=== PATIENT | female | born 2000 | race Caucasian/White ===

== ENCOUNTER 2024-01-27 02:03 | Emergency (ER) | payer MEDICAID ==
[~2024-01-27] VITALS: Ht 165.1 cm; Wt 86.7 kg
[2024-01-27 02:25] LABS: BASOPHILS % (AUTO) 0.6 % (0-1); EOSINOPHILS # (AUTO) 0.1 X10'3 (0-0.9); HEMATOCRIT 38.4 % (35.0-45.0); HEMOGLOBIN 12.9 g/dl (12.0-16.0); LYMPHOCYTES # (AUTO) 2.5 X10'3 (1.1-4.8); LYMPHOCYTES % (AUTO) 31.8 % (21-51); MEAN CORPUSCULAR HEMOGLOBIN 30.5 PG (27.0-31.0); MEAN CORPUSCULAR HGB CONC 33.5 g/dL (33.0-36.5); MEAN CORPUSCULAR VOLUME 91.1 FL (78-98); MEAN PLATELET VOLUME 6.6 FL (7.4-10.4); MONOCYTES # (AUTO) 0.5 X10'3 (0-0.9); MONOCYTES % (AUTO) 6.7 % (2-12); NEUTROPHILS # (AUTO) 4.8 X10'3 (1.8-7.7); NEUTROPHILS % (AUTO) 59.9 % (42-75); PLATELET COUNT 304 X10'3 (140-440); RED BLOOD COUNT 4.22 X10'6 (4.20-5.60); RED CELL DISTRIBUTION WIDTH 13.3 % (11.5-14.5)
[2024-01-27 02:33] LABS: BILIRUBIN,URINE NEGATIVE (Neg); CLARITY,URINE CLEAR (Clear); COLOR,URINE YELLOW (Yellow); GLUCOSE, URINE NEGATIVE (Neg); KETONES,URINE TRACE mg/dl (Neg); LEUKOCYTE ESTERASE ,URINE NEGATIVE (Neg); NITRITES, URINE NEGATIVE (Neg); OCCULT BLOOD,URINE MODERATE (Neg); PROTEIN,URINE NEGATIVE (Neg); UROBILINOGEN,URINE 0.2 E.U/dL (0.2-1.0)
[2024-01-27 02:34] LABS: UA COLLECTION TYPE CLN CATCH MIDSTREAM; URINE HCG NEGATIVE (NEG)
[2024-01-27 02:40] LABS: ALANINE AMINOTRANSFERASE 18 U/L (12-78); ALBUMIN 3.7 G/DL (3.4-5.0); ALBUMIN/GLOBULIN RATIO 0.9 (1.1-1.5); ALKALINE PHOSPHATASE 68 IU/L (46-116); ANION GAP 5 (8-16); ASPARTATE AMINO TRANSFERASE 17 U/L (10-37); BILIRUBIN,TOTAL 0.3 MG/DL (0.1-1.0); BLOOD UREA NITROGEN 10 MG/DL (7-18); BUN/CREATININE RATIO 11.4 (10.0-20.0); CHLORIDE 104 MMOL/L (99-107); CREATININE 0.88 MG/DL (0.40-0.90); GLUCOSE 98 MG/DL (70-104); LIPASE 58 U/L (16-77); POTASSIUM 3.8 MMOL/L (3.5-5.1); SODIUM 139 MMOL/L (135-145); TOTAL CARBON DIOXIDE 29.6 MMOL/L (24-32); TOTAL PROTEIN 7.6 G/DL (6.4-8.2); eCRCL 91 ML/MIN; eGFR 81 ML/MIN
[2024-01-27] MEDS: ibuprofen tablet 400 MG TABLET PO ONE (02:54)
[2024-01-27] MEDS: acetaminophen 325mg tablet PO ONE (02:54)
[2024-01-27] MEDS: ondansetron 4mg rapidly disintigrating tab PO ONE (02:55)
[2024-01-27 02:59] LABS: WBC,URINE 0-4 /HPF (0-4)
[2024-01-27 03:00] LABS: BACTERIA,URINE NONE SEEN /HPF (Neg); MUCUS STRANDS NONE SEEN /LPF (Neg); SQUAMOUS EPITHELIAL CELL,UR FEW /LPF (FEW); TRANSITIONAL EPI CELLS,URINE FEW /HPF
[2024-01-27] MEDS ORDERED: POLY119P2 PO (04:23)
[2024-01-27] MEDS ORDERED: BISA-78 PO (04:23)
[2024-01-27] MEDS: bisacodyl 5mg tablet.DR PO ONE (04:34)
[2024-01-27 04:38] VITALS: BP 95/65; PULSE 62; RESP 16; TEMP 98.5; O2SAT 100
== END 2024-01-27 04:44 | disposition home or self-care (01) ==
LOC: ER 02:04
DX: K59.00 Constipation, unspecified (principal); R11.2 Nausea with vomiting, unspecified
CPT/HCPCS: 36415; 74176; 80053; 81001; 81025; 83690; 85025; 99284

== ENCOUNTER 2024-09-13 15:41 | Emergency (ER) | payer MEDICAID ==
[~2024-09-13] VITALS: Ht 165.1 cm; Wt 86.4 kg
[~2024-09-13 15:41] MED LIST: BISA-78 PO; POLY119P2 PO
[2024-09-13 15:44] VITALS: BP 134/87; PULSE 87; RESP 18; TEMP 98.6; O2SAT 97
--- NOTE | 2024-09-13 16:32 | RADIOLOGY REPORT ---
EXAM: XR Left Foot Complete, 3 or More Views CLINICAL INDICATION: TOE PAIN TECHNIQUE: Frontal, lateral and oblique views of the left foot. COMPARISON: None FINDINGS: BONES/JOINTS: Unremarkable. No acute fracture. No dislocation. SOFT TISSUES: Unremarkable. No radiopaque foreign body. OTHER FINDINGS: . IMPRESSION: No acute fracture.
[2024-09-13] MEDS: ibuprofen tablet 400 MG TABLET PO ONE (16:33)
--- NOTE | 2024-09-13 16:35 | RADIOLOGY REPORT ---
CLINICAL INDICATION: ANKLE PAIN TECHNIQUE: 4 radiographic views of the left ankle were obtained. Comparison: None FINDINGS/IMPRESSION: There is no evidence of acute fracture or dislocation. The visualized joint space is well maintained. The alignment is anatomical. Overlying external density limits evaluation of the soft tissue fine details.
--- NOTE | 2024-09-13 17:06 | Physician Documentation ---
History of Present Illness ~ Chief Complaint: Foot pain Stated Complaint: L FOOT INJURY Time Seen by MD: 15:57 HPI This is a 24-year-old female who presents with two days of left foot and ankle pain after her horse stepped on her foot, patient additionally reports that she twisted her ankle attempting to step away from the horse. Patient reports she is able to walk and bear weight on the affected foot though it hurts when putting weight on her left great toe. Patient reports no loss of sensation to the foot. Tetanus witin 5 years: Yes Medication Reconciliation Allergies: Coded Allergies: No Known Allergies (Unverified , 01/27/24) Scheduled Bisacodyl (Dulcolax), 4 TAB PO ONCE Ibuprofen (Ibuprofen), 1 TAB PO Q8H Polyethylene Glycol 3350 (Miralax), 17 GM PO DAILY Past Medical History Past Medical History: No Pertinent History Review of Systems ROS Left foot and ankle pain as stated above in the HPI, otherwise all systems are reviewed and negative. Physical Exam Vital Signs: Temperature: 98.6, Source: Temporal, Heart Rate: 87, Respiratory Rate: 18, BP: 134/87, Pulse Oximetry: 97, Weight: 86.360 Oxygen Flow Rate: 0 Physical Exam VITALS: Reviewed and as above. GENERAL: Alert, nontoxic appearing, no apparent distress. RESPIRATORY: No increased work of breathing, no respiratory distress, speaking in full clear sentences MUSCULOSKELETAL: Left foot non swollen as compared to right foot, brisk capillary refill, pedal pulse intact, tenderness to palpation over medial aspect of dorsal forefoot otherwise nontender to palpation, tenderness to palpation to the lateral aspect of left ankle with no tenderness to palpation to medial aspect SKIN: No ecchymosis, erythema, or abrasions to left foot Progress Results/Orders Results/Orders Orders - KEVIN DE GUZMAN Ortho Orders (09/13/24 ) Completed Orders - KEVIN DE GUZMAN Ibuprofen Tablet (Motrin Tablet) (09/13/24 16:15) Vital Signs 09/13/24 15:44 Temp 98.6 Pulse 87 Resp 18 B/P (MAP) 134/87 Pulse Ox 97 O2 Flow Rate 0 EKG/XRAY/CT/US/VASC/MRI Bone/Soft Tissue X-Ray (Ext.) #1: Additional Comment EXAM: XR Left Foot Complete, 3 or More Views CLINICAL INDICATION: TOE PAIN TECHNIQUE: Frontal, lateral and oblique views of the left foot. COMPARISON: None FINDINGS: BONES/JOINTS: Unremarkable. No acute fracture. No dislocation. SOFT TISSUES: Unremarkable. No radiopaque foreign body. OTHER FINDINGS: . IMPRESSION: No acute fracture. Electronically Signed by:RONAN ISBELL MD Date & Time: 09/13/241629 Dictated by: RONAN ISBELL MD Dictation date and time: 09/13/241629 I have reviewed and agree with the radiology report. I have reviewed and interpreted the imaging as: No fracture or dislocation Bone/Soft Tissue X-Ray (Ext.) #2: Additional Comment CLINICAL INDICATION: ANKLE PAIN TECHNIQUE: 4 radiographic views of the left ankle were obtained. Comparison: None FINDINGS/IMPRESSION: There is no evidence of acute fracture or dislocation. The visualized joint space is well maintained. The alignment is anatomical. Overlying external density limits evaluation of the soft tissue fine details. Electronically Signed by:IMAN VERDUZCO DO Date & Time: 09/13/241631 Dictated by: IMAN VERDUZCO DO Dictation date and time: 09/13/241631 I have reviewed and agree with the radiology report. I have reviewed and interpreted the imaging as: No fracture dislocation Medical Decision Making Findings This 24-year-old female presented with left foot and ankle pain after her horse stepped on her foot two days ago, patient is able to walk and bear weight pain is primarily located on dorsal medial aspect of left forefoot and lateral aspect of left ankle with tenderness to palpation to these areas, there was no pain out of proportion with the exam, physical exam did not demonstrate significant swelling and demonstrated no deformity, ecchymosis, or erythema. The left foot and toes were neurovascularly intact with strong pedal pulse, brisk capillary refill and sensation intact. X-ray of the foot and ankle did not demonstrate fracture or dislocation, I suspect this is a soft tissue injury. Patient medicated for pain in department reporting adequate pain control. Remainder of physical exam and patient is appropriate for outpatient management, patient to be treated outpatient with rest, ice, compression, elevation treatment strategy. Patient provided crutches to rest foot and provided home care instructions and return to care precautions which she verbalized understanding of. General Diff Dx:Considerations: Include: Abrasion, Fracture, Hematoma, Laceration, Malunion, Neurovascular injury, Sprain Foot Diff Dx:Considerations: Include: Cellulitis, Puncture, Septic Departure Disposition: 01 HOME / SELF CARE / HOMELESS Impression: Primary Impression: Foot pain Qualified Codes: M79.672 - Pain in left foot Additional Impression: Ankle pain Qualified Codes: M25.572 - Pain in left ankle and joints of left foot Condition: Improved Discharge Instructions: RICE Therapy for Routine Care of Injuries Additional Instructions: Please use the provided crutches to keep weight off the foot to rest it, you may apply weight to the foot as tolerated as long as it does not cause pain, please see the attached home care instructions for the rest ice compression elevation treatment strategy. Please follow up with your primary care provider in the next few days for recheck. Please return to the emergency department for any new or worsening concerning symptoms. May use the prescribed ibuprofen as needed for pain to 3 times a day, please take ibuprofen with food to avoid stomach upset. Referrals: NO PRIMARY CARE PROVIDER (PCP) Prescriptions Ibuprofen (Ibuprofen) 800 Mg Tablet 1 TAB PO Q8H for pain for 10 Days, #30 TAB 0 Refills Prov: KEVIN DE GUZMAN 09/13/24 Education Educated: Patient Educated regarding: diagnosis, treatment, prognosis, need for follow up Signature Scribe Signature: No scribe Attestation: The note accurately reflects work and decisions made by me.DANIEL Dennis 09/14/24 02:29 KEVIN DE GUZMAN September 13, 2024 17:06
[2024-09-13] MEDS ORDERED: IBUP-1986 PO (17:07)
== END 2024-09-13 17:20 | disposition home or self-care (01) ==
LOC: ER 15:42
DX: M79.672 Pain in left foot (principal); M25.572 Pain in left ankle and joints of left foot; X50.1XXA Overexertion from prolonged static or awkward postures, initial encounter; Y93.89 Activity, other specified; Y92.89 Other specified places as the place of occurrence of the external cause; Y99.8 Other external cause status
CPT/HCPCS: 73610; 73630; 99284